=== PATIENT | female | born 1965 | race Caucasian/White ===

== ENCOUNTER 2021-04-07 04:55 | Inpatient (IN) | payer OTHER ==
[~2021-04-07] VITALS: Ht 162.6 cm; Wt 97.5 kg
[2021-04-07] VITALS (7 sets, daily range): BP systolic 113–168; BP diastolic 72–107
[~2021-04-07 04:55] MED LIST: GOOD NEIGHBOR150 MG PO; IBU800 M1 PO; PREDNISONE10 MG PO
[2021-04-07 06:05] LABS: BASO # 0.1 10*3/uL (0.0-0.1); EOS # 0.2 10*3/uL (0.0-0.4); EOS % 2.2 % (1.0-4.0); LYMPH # 2.3 10*3/uL (1.3-4.4); LYMPH % 27.3 % (27.0-41.0); MEAN CELL VOLUME 92.4 fl (81.0-99.0); MEAN CORPUSCULAR HGB 30.7 pg (27.0-31.0); MEAN CORPUSCULAR HGB CONC 33.3 g/dl (33.0-37.0); MEAN PLATELET VOLUME 9.8 fl (9.6-12.3); MONO # 0.7 10*3/uL (0.1-1.0); MONO % 8.4 % (3.0-9.0); NEUT % 60.3 % (47.0-73.0); PLATELET COUNT AUTOMATED 290 10*3/uL (130-400); RED BLOOD COUNT 4.33 10*6/uL (4.10-5.10); RED CELL DISTRI WIDTH 12.7 % (0-14.5); WHITE BLOOD COUNT 8.3 10*3/uL (4.8-10.8)
[2021-04-07 06:26] LABS: ALBUMIN 3.3 gm/dl (3.1-4.5); ALKALINE PHOSPHATASE 121 U/L (45-117); BUN 14 mg/dl (7-24); CHLORIDE 105 mmol/L (98-107); CREATININE 1.08 mg/dL (0.55-1.02); POTASSIUM 3.9 mmol/L (3.5-5.1); SGOT/AST 14 IU/L (3-35); SGPT/ALT 20 U/L (12-78); SODIUM 138 mmol/L (136-145); TOTAL PROTEIN 6.9 gm/dL (6.4-8.2)
[2021-04-07] MEDS ORDERED: LOSARTAN-HCTZ1 EAC1 PO (09:39)
[2021-04-07] MEDS ORDERED: CELECOXIB200 M1 PO (10:06)
[2021-04-07] MEDS ORDERED: VITAMIN D350 MCG PO (10:06)
[2021-04-07] MEDS ORDERED: CYCLOBENZAPRINE10 MG PO (10:07)
[2021-04-07] MEDS ORDERED: METOPROLOL SUCC50 M1 PO (10:08)
[2021-04-07] MEDS ORDERED: FAMOTIDINE20 M1 PO (10:08)
[2021-04-08] VITALS (7 sets, daily range): BP systolic 125–170; BP diastolic 68–93
[2021-04-08 06:29] LABS: BASO % 0.5 % (0.0-1.0); EOS # 0.2 10*3/uL (0.0-0.4); EOS % 3.5 % (1.0-4.0); HEMATOCRIT 36.2 % (37.0-47.0); LYMPH # 1.7 10*3/uL (1.3-4.4); MEAN CELL VOLUME 93.3 fl (81.0-99.0); MEAN CORPUSCULAR HGB 30.9 pg (27.0-31.0); MEAN CORPUSCULAR HGB CONC 33.1 g/dl (33.0-37.0); MONO # 0.5 10*3/uL (0.1-1.0); MONO % 8.2 % (3.0-9.0); NEUT # 3.6 10*3/uL (2.3-7.9); NEUT % 59.6 % (47.0-73.0); PLATELET COUNT AUTOMATED 255 10*3/uL (130-400); RED BLOOD COUNT 3.88 10*6/uL (4.10-5.10); RED CELL DISTRI WIDTH 13.1 % (0-14.5)
[2021-04-08 06:52] LABS: ALBUMIN 3.1 gm/dl (3.1-4.5); ALKALINE PHOSPHATASE 100 U/L (45-117); BUN 13 mg/dl (7-24); CHLORIDE 109 mmol/L (98-107); CREATININE 0.87 mg/dL (0.55-1.02); POTASSIUM 3.7 mmol/L (3.5-5.1); SGPT/ALT 16 U/L (12-78); SODIUM 140 mmol/L (136-145); TOTAL PROTEIN 6.2 gm/dL (6.4-8.2)
[2021-04-08 07:02] LABS: FREE T4 0.91 ng/dl (0.76-1.46); SGOT/AST 10 IU/L (3-35)
[2021-04-09] VITALS: BP 141/92
[2021-04-09 06:33] LABS: BASO # 0.1 10*3/uL (0.0-0.1); BASO % 0.8 % (0.0-1.0); EOS # 0.3 10*3/uL (0.0-0.4); EOS % 3.8 % (1.0-4.0); HEMATOCRIT 38.8 % (37.0-47.0); LYMPH # 2.1 10*3/uL (1.3-4.4); LYMPH % 29.3 % (27.0-41.0); MEAN CORPUSCULAR HGB 31.2 pg (27.0-31.0); MEAN CORPUSCULAR HGB CONC 33.5 g/dl (33.0-37.0); MONO # 0.6 10*3/uL (0.1-1.0); MONO % 7.9 % (3.0-9.0); NEUT # 4.2 10*3/uL (2.3-7.9); NEUT % 57.9 % (47.0-73.0); PLATELET COUNT AUTOMATED 301 10*3/uL (130-400); RED BLOOD COUNT 4.17 10*6/uL (4.10-5.10); WHITE BLOOD COUNT 7.2 10*3/uL (4.8-10.8)
[2021-04-09 08:00] VITALS: BP 161/93
[2021-04-09] MEDS ORDERED: CEPHALEXIN500 M1 PO (10:50)
[2021-04-09] MEDS ORDERED: DOXYCYCLINE100 M3 PO (10:50)
== END 2021-04-09 12:14 | disposition home or self-care (01) | DRG 720 ==
LOC: ED 04:55 → 5E 07:27 → EDHOLD 07:27 → 5E 09:07
PROVIDERS: Emergency Medicine; Internal Medicine; ADMIT Internal Medicine; ATTEND Internal Medicine
DX: A41.9 Sepsis, unspecified organism (principal); L03.113 Cellulitis of right upper limb; N18.30 Chronic kidney disease, stage 3 unspecified; I12.9 Hypertensive chronic kidney disease with stage 1 through stage 4 chronic kidney disease, or unspecified chronic kidney disease; L02.511 Cutaneous abscess of right hand; R73.9 Hyperglycemia, unspecified; N17.0 Acute kidney failure with tubular necrosis; E66.9 Obesity, unspecified; Z88.0 Allergy status to penicillin; Z90.49 Acquired absence of other specified parts of digestive tract; Z87.891 Personal history of nicotine dependence; Z68.36 Body mass index [BMI] 36.0-36.9, adult

== ENCOUNTER → 2024-12-10 | Outpatient (CLI) | payer OTHER ==
[~2024-12-10] MED LIST changes: +CELECOXIB200 M1 PO; +CEPHALEXIN500 M1 PO; +CYCLOBENZAPRINE10 MG PO; +DOXYCYCLINE100 M3 PO; +FAMOTIDINE20 M1 PO; +LOSARTAN-HCTZ1 EAC1 PO; +METOPROLOL SUCC50 M1 PO; +VITAMIN D350 MCG PO
== END | disposition home or self-care (01) ==
LOC: US 09:00
PROVIDERS: ATTEND Nurse Practitioner Family
DX: K76.0 Fatty (change of) liver, not elsewhere classified (principal); R10.11 Right upper quadrant pain; Z90.49 Acquired absence of other specified parts of digestive tract